=== PATIENT | male | born 1970 | race Caucasian/White ===

== ENCOUNTER 2023-04-03 07:56 | Emergency (ER) | payer SELFPAY ==
[2023-04-03] MEDS ORDERED: COLCHICINE 0.6 MG TAB ONE ×2 (08:32→09:30)
--- NOTE | 2023-04-03 08:38 | EDPHYS ---
Physician Documentation [facility] Name: Oseas Castelan Age: 52 yrs Sex: Male : 1970 Arrival Date: 04/03/2023 Time: 07:56 Bed 12 Private MD: ED Physician Anai Ortega HPI: 04/03 09:43 This 52 yrs old Male presents to ER via Wheelchair with complaints of Ankle Pain. snw 09:43 The patient presents with decreased range of motion, pain, that is acute. The snw complaints affect the left foot. Context: The problem was sustained at home, resulted from an unknown cause, the patient is not able to bear weight, the patient is not able to ambulate. Onset: The symptoms/episode began/occurred suddenly, 1 day(s) ago, and became worse this morning. Associated signs and symptoms: Pertinent positives: swelling. Severity of symptoms: At their worst the symptoms were moderate, severe. The patient has experienced a previous episode, many years ago. The patient has not recently seen a physician. Historical: - Allergies: 08:04 No Known Allergies; ll1 - PMHx: 08:04 neuropathy; ll1 - PSHx: 08:04 Appendectomy; R arm SX; ll1 - Immunization history:: Adult Immunizations up to date. - Social history:: Smoking status: Patient/guardian denies using tobacco. ROS: 09:41 Constitutional: Negative for fever, chills, and weight loss, Eyes: Negative for injury, snw pain, redness, and discharge, ENT: Negative for injury, pain, and discharge, Neck: Negative for injury, pain, and swelling, Cardiovascular: Negative for chest pain, palpitations, and edema, Respiratory: Negative for shortness of breath, cough, wheezing, and pleuritic chest pain, Abdomen/GI: Negative for abdominal pain, nausea, vomiting, diarrhea, and constipation, Back: Negative for injury and pain, : Negative for injury, bleeding, discharge, and swelling, Skin: Negative for injury, rash, and discoloration, Neuro: Negative for headache, weakness, numbness, tingling, and seizure, Psych: Negative for depression, anxiety, suicide ideation, homicidal ideation, and hallucinations, 09:41 MS/extremity: Positive for pain, swelling, left posterior foot/ankle, Negative for injury or acute deformity, Exam: 09:40 Constitutional: This is a well developed, well nourished patient who is awake, alert, snw and in no acute distress. Head/Face: Normocephalic, atraumatic. Eyes: Pupils equal round and reactive to light, extra-ocular motions intact. Lids and lashes normal. Conjunctiva and sclera are non-icteric and not injected. Cornea within normal limits. Periorbital areas with no swelling, redness, or edema. ENT: Nares patent. No nasal discharge, no septal abnormalities noted. Tympanic membranes are normal and external auditory canals are clear. Oropharynx with no redness, swelling, or masses, exudates, or evidence of obstruction, uvula midline. Mucous membranes moist. Neck: Trachea midline, no thyromegaly or masses palpated, and no cervical lymphadenopathy. Supple, full range of motion without nuchal rigidity, or vertebral point tenderness. No Meningismus. Chest/axilla: Normal chest wall appearance and motion. Nontender with no deformity. No lesions are appreciated. Cardiovascular: Regular rate and rhythm with a normal S1 and S2. No gallops, murmurs, or rubs. Normal PMI, no JVD. No pulse deficits. Respiratory: Lungs have equal breath sounds bilaterally, clear to auscultation and percussion. No rales, rhonchi or wheezes noted. No increased work of breathing, no retractions or nasal flaring. Abdomen/GI: Soft, non-tender, with normal bowel sounds. No distension or tympany. No guarding or rebound. No evidence of tenderness throughout. Back: No spinal tenderness. No costovertebral tenderness. Full range of motion. Skin: Warm, dry with normal turgor. Normal color with no rashes, no lesions, and no evidence of cellulitis. Neuro: Awake and alert, GCS 15, oriented to person, place, time, and situation. Cranial nerves II-XII grossly intact. Motor strength 5/5 in all extremities. Sensory grossly intact. Cerebellar exam normal. Normal gait. Psych: Awake, alert, with orientation to person, place and time. Behavior, mood, and affect are within normal limits. 09:40 Musculoskeletal/extremity: Extremities: grossly normal except: ROM: no acute changes, Circulation is intact in all extremities. the lateral side of left heel, left lateral malleolus, left medial malleolus, medial aspect of left heel and heel of left foot Severe pain noted. Weight bearing: is unable to bear weight, Vital Signs: 08:03 BP 146 / 103; Pulse 90; Resp 18; Temp 98.7; Pulse Ox 97% ; Weight 124.74 kg; Height 5 ll1 ft. 11 in. ; Pain 10/10; 08:03 Body Mass Index 38.35 (124.74 kg, 180.34 cm) ll1 08:03 Pain Scale: Adult ll1 MDM: 08:11 Patient medically screened. snw 09:42 Differential diagnosis: viral Infection, bacterial infection, gout/inflammatory snw condition. Data reviewed: vital signs, nurses notes. I considered the following discharge prescriptions or medication management in the emergency department Medications were administered in the Emergency Department. See MAR. Counseling: I had a detailed discussion with the patient and/or guardian regarding the historical points, exam findings, and any diagnostic results supporting the discharge/admit diagnosis, the need for outpatient follow up, for definitive care. Response to treatment: the patient's symptoms have mildly improved after treatment. Special discussion: I have referred the patient to see his PCP for further evaluation of high blood pressure. Based on the history and exam findings, there is no indication for further emergent testing or inpatient evaluation. I discussed with the patient/guardian the need to see the primary care provider for further evaluation of the symptoms. 04/03 08:16 Order name: Crutches; Complete Time: 08:24 snw 04/03 08:16 Order name: Crutch Training; Complete Time: 09:07 snw Administered Medications: 08:24 Drug: Colcrys PO 1.2 mg PO once Route: PO; 1 09:07 Follow up: Response: No adverse reaction eh3 09:15 Drug: Colcrys PO 0.6 mg PO once Route: PO; eh3 09:24 Follow up: Response: No adverse reaction; Medication administered at discharge. eh3 09:15 Drug: HYDROcodone-acetaminophen PO 5 mg-325 mg 1 tabs PO once Route: PO; eh3 09:24 Follow up: Response: No adverse reaction; Medication administered at discharge. eh3 Disposition Summary: 04/03/23 08:38 Discharge Ordered Notes: Location: Home snw Condition: Stable snw Diagnosis - Gout, unspecified snw Followup: snw - With: Emergency Department - When: As needed - Reason: Worsening of condition Followup: snw - With: Private Physician - When: 2 - 3 days - Reason: Recheck today's complaints, Continuance of care, Re-evaluation by your physician Discharge Instructions: - Discharge Summary Sheet snw - Gout snw - Low-Purine Eating Plan snw - Rehydration, Adult snw Forms: - Medication Reconciliation Form snw - Thank You Letter snw - Antibiotic Education snw - Prescription Opioid Use snw - Patient Portal Instructions snw - Leadership Thank You Letter snw Prescriptions: - Pepcid 20 mg Oral Tablet - take 1 tablet ORAL route every 12 hours for 10 days; 20 tablet; Refills: 0, snw Product Selection Permitted - Tramadol 50 mg Oral Tablet - take 1 tablet ORAL route every 8 hours as needed; 12 tablet; Refills: 0, snw Product Selection Permitted - Prednisone 20 mg Oral Tablet - take 2 tablets ORAL route once daily for 5 days; 10 tablet; Refills: 0, Product snw Selection Permitted Signatures: Lori Monreal FNP-C TELEVISION AUDIO ENGINEER-Csnw Jade Oliver, RN RN ll1 Gladys Campos RN RN eh3
--- NOTE | 2023-04-03 08:38 | ER ---
Nurse's Notes [facility] Name: Oseas Castelan Age: 52 yrs Sex: Male : 1970 Arrival Date: 04/03/2023 Time: 07:56 Bed 12 Private MD: Diagnosis: Gout, unspecified Presentation: 04/03 08:03 Chief complaint: Patient states: L ankle pain for 2 days. No known trauma. Coronavirus ll1 screen: Vaccine status: Patient reports receiving the 2nd dose of the covid vaccine. Client denies travel out of the [place] in the last 14 days. At this time, the client does not indicate any symptoms associated with coronavirus-19. Ebola Screen: Patient denies travel to an Ebola-affected area in the 21 days before illness onset. Initial Sepsis Screen: Does the patient meet any 2 criteria? Yes Does the patient have a suspected source of infection? Yes: Bone or joint infection. Risk Assessment: Do you want to hurt yourself or someone else? Patient reports no desire to harm self or others. Onset of symptoms was April 02, 2023. 08:03 Method Of Arrival: Wheelchair ll1 08:03 Acuity: PJ 4 ll1 Triage Assessment: 08:07 General: Appears uncomfortable, Behavior is calm, cooperative, appropriate for age. ll1 Pain: Complains of pain in L ankle Pain currently is 10 out of 10 on a pain scale. Quality of pain is described as aching, throbbing. Musculoskeletal: Circulation, motion, and sensation intact. Capillary refill < 3 seconds, Reports pain in L ankle. Historical: - Allergies: 08:04 No Known Allergies; ll1 - PMHx: 08:04 neuropathy; ll1 - PSHx: 08:04 Appendectomy; R arm SX; ll1 - Immunization history:: Adult Immunizations up to date. - Social history:: Smoking status: Patient/guardian denies using tobacco. Assessment: 08:24 Reassessment: No changes from previously documented assessment. Patient and/or family ll1 updated on plan of care and expected duration. Pain level reassessed. Vital Signs: 08:03 BP 146 / 103; Pulse 90; Resp 18; Temp 98.7; Pulse Ox 97% ; Weight 124.74 kg; Height 5 ll1 ft. 11 in. ; Pain 10/10; 08:03 Body Mass Index 38.35 (124.74 kg, 180.34 cm) ll1 08:03 Pain Scale: Adult ll1 ED Course: 07:57 Patient arrived in ED. rg4 07:58 [facility] Monreal [facility]C [facility] snw 07:58 Anai Ortega MD is Attending Physician. snw 08:04 Triage completed. ll1 08:07 Arm band placed on Patient placed in an exam room, on a stretcher. 1 08:21 Jade Oliver, RN is Primary Nurse. ll1 09:07 No provider procedures requiring assistance completed. Patient did not have IV access eh3 during this emergency room visit. 09:07 Crutch training done. eh3 Administered Medications: 08:24 Drug: Colcrys PO 1.2 mg PO once Route: PO; 1 09:07 Follow up: Response: No adverse reaction eh3 09:15 Drug: Colcrys PO 0.6 mg PO once Route: PO; 3 09:24 Follow up: Response: No adverse reaction; Medication administered at discharge. 3 09:15 Drug: HYDROcodone-acetaminophen PO 5 mg-325 mg 1 tabs PO once Route: PO; eh3 09:24 Follow up: Response: No adverse reaction; Medication administered at discharge. 3 Outcome: 08:38 Discharge ordered by . snw 09:24 Discharged to home with crutches, 3 09:24 Condition: stable 09:24 Discharge instructions given to patient, Instructed on discharge instructions, follow up and referral plans. medication usage, crutch walking, Demonstrated understanding of instructions, follow-up care, medications, crutch walking, Prescriptions given X 3, 09:24 Patient left the ED. 3 Signatures: Lori Monreal FNP-C FNP-Cassie Harris rg4 Jade Oliver, RN RN 1 Gladys Campos RN RN 3
[2023-04-03] MEDS ORDERED: HYDROCODONE/APAP 5/325 MG TAB ONE (09:29)
[2023-04-03 16:28] VITALS: BP 146/103; TEMP 98.7; O2SAT 97
== END 2023-04-03 09:24 | disposition home or self-care (01) ==
LOC: ER 07:56
DX: M10.9 Gout, unspecified (principal)
CPT/HCPCS: 99283